=== PATIENT | female | born 1945 | race Caucasian/White ===

== ENCOUNTER 2018-01-08 05:34 | Emergency (ER) | payer MEDICARE, BC ==
[2018-01-08] MEDS ORDERED: ASPIRIN 81 MG TABLET, CHEWABLE PO ONE (05:46)
[2018-01-08] MEDS ORDERED: DILTIAZEM HCL INJ 25 MG/5 ML VIAL IV ONE (05:56)
[2018-01-08] MEDS ORDERED: DILTIAZEM HCL/D5W 125 MG/125 ML RTUINJ IV PRN (05:56)
--- NOTE | 2018-01-08 05:58 | ER Document Report ---
Doctor's Note Notes: 01/08/18 05:57 I performed a quick triage evaluation of the patient. Patient is a pleasant 72- year-old female who presents with complaints of feeling her heart is racing. She said her symptoms started after 3 AM. She denies any chest pain. She has some shortness of breath. She has had approximately 3 pound weight increase due to fluid in her legs. She is on torsemide. She does not take a statin. No recent changes in her medications. She currently is chest pain-free and looks well. Lung canas are clear on auscultation. Heart is rapid and irregular rate. EKG shows atrial fibrillation. I have ordered Cardizem to be given to the patient. Will place on a monitor. I have ordered laboratory evaluation chest x-ray. Dictation of this chart was performed using voice recognition software; therefore, there may be some unintended grammatical errors.
--- NOTE | 2018-01-08 06:13 | ER Document Report ---
ED Cardiac - General Chief Complaint: Chest Pain Stated Complaint: CHEST PAIN Time Seen by Provider: 01/08/18 05:55 Notes: The patient is a 72-year-old female, past medical history A. bismark (on Coumadin), tachybrady syndrome with pacemaker, presents with 3 hours of feeling like her heart is racing. She had an ablation in [place] last week and was recently started on Dofetilide. She denies chest pain, shortness of breath, nausea, vomiting, increased swelling, fevers, headache, back pain, syncope or hemoptysis. TRAVEL OUTSIDE OF THE [place] IN LAST 30 DAYS: No - Related Data Allergies/Adverse Reactions: morphine [Morphine] Allergy (Verified 03/30/15 01:17) Past Medical History - General Information source: Patient - Social History Smoking Status: Never Smoker Family History: Reviewed & Not Pertinent - Past Medical History Cardiac Medical History: Reports: Hx Atrial Fibrillation - HX OF NOT ON COUMADIN , Hx Hypercholesterolemia, Hx Hypertension Denies: Hx Congestive Heart Failure, Hx Coronary Artery Disease, Hx Heart Attack, Hx Peripheral Vascular Disease, Hx Heart Murmur Pulmonary Medical History: Denies: Hx Tuberculosis GI Medical History: Reports: Hx Gastroesophageal Reflux Disease Musculoskeltal Medical History: Reports Hx Arthritis, Denies Hx Fibromyalgia, Denies Hx Muscular Dystrophy Traumatic Medical History: Denies: Hx Fractures Past Surgical History: Reports: Hx Cholecystectomy, Hx Hysterectomy - PARTIAL, Hx Tonsillectomy. Denies: Hx Pacemaker - Immunizations Hx Diphtheria, Pertussis, Tetanus Vaccination: Yes Hx Pneumococcal Vaccination: 07/19/11 Review of Systems - Review of Systems Notes: REVIEW OF SYSTEMS: CONSTITUTIONAL: -fevers, -chills EENT: -eye pain, -difficulty swallowing, -nasal congestion CARDIOVASCULAR: -chest pain, -syncope, +palpitations RESPIRATORY: -cough, -SOB GASTROINTESTINAL: -abdominal pain, -nausea, -vomiting, -diarrhea GENITOURINARY: -dysuria, -hematuria MUSCULOSKELETAL: -back pain, -neck pain SKIN: -rash or skin lesions. HEMATOLOGIC: -easy bruising or bleeding. LYMPHATIC: -swollen, enlarged glands. NEUROLOGICAL: -altered mental status or loss of consciousness, -headache, - neurologic symptoms PSYCHIATRIC: -anxiety, -depression. ALL OTHER SYSTEMS REVIEWED AND NEGATIVE. Physical Exam - Vital signs Vitals: Pulse Ox 100 01/08/18 05:46 - Notes Notes: PHYSICAL EXAMINATION: GENERAL: Well-appearing, well-nourished and in no acute distress. HEAD: Atraumatic, normocephalic. EYES: Pupils equal round and reactive to light, extraocular movements intact, sclera anicteric, conjunctiva are normal. ENT: nares patent, oropharynx clear without exudates. Moist mucous membranes. NECK: Normal range of motion, supple without lymphadenopathy LUNGS: No respiratory distress. Small amount of rales. HEART: Irregularly irregular rhythm ABDOMEN: Soft, nontender, normoactive bowel sounds. No guarding, no rebound. No masses appreciated. EXTREMITIES: 1+ pitting edema around ankles. NEUROLOGICAL: Cranial nerves grossly intact. Normal speech, normal gait. Normal sensory and motor exams. PSYCH: Normal mood, normal affect. SKIN: Warm, Dry, normal turgor, no rashes or lesions noted. No redness or tenderness noted around left upper chest wall pacemaker. Course - Re-evaluation Re-evalutation: Patient appears very well and has no complaints other than feeling her heart racing. She is found to be in A. fib with RVR and a diltiazem bolus was given to the patient patient with improvement of her heart rate to the 70s. She remained stable during this entire time. Diltiazem drip was started at 10 mg/h and quickly titrated down to 0 after she took her home rate control medication. She was observed in the ER and remained in rate controlled A. fib. She had some mild pulmonary vascular congestion on her chest x-ray and she is provided a dose of IV Lasix. She is in no respiratory distress and her oxygen saturation is normal. Blood work is all unremarkable, including 2 sets of negative troponins. She is requesting discharge. She feels much better and has absolutely no complaints at time of discharge. Told her to increase her Coumadin tonight from 6 mg to 8 mg due to the slightly low INR. Patient told to follow-up with her primer charger for further evaluation and treatment. Given very strict return precautions and she understands. - Vital Signs Vital signs: Temp Pulse Resp BP Pulse Ox 70 18 121/68 97 01/08/18 07:00 01/08/18 09:30 01/08/18 09:30 01/08/18 09:30 - Laboratory Result Diagrams: 01/08/18 06:00 01/08/18 06:00 Laboratory results interpreted by me: 01/08/18 01/08/18 01/08/18 06:00 06:00 06:00 RDW 15.1 H PT 23.4 H APTT 44.2 H Chloride 109 H - Diagnostic Test Radiology reviewed: Image reviewed, Reports reviewed Radiology results interpreted by me: CXR: Cardiomegaly with vascular congestion - EKG Interpretation by Me EKG shows normal: ST-T Waves Rate: Tachycardia Rhythm: A.Fib Critical Care Note - Critical Care Note Total time excluding time spent on procedures (mins): 35 Discharge - Discharge Clinical Impression: Atrial fibrillation with rapid ventricular response Pulmonary edema Qualifiers: Chronicity: acute Qualified Code(s): J81.0 - Acute pulmonary edema Condition: Stable Disposition: HOME, SELF-CARE Additional Instructions: Follow-up with your primer charger this week. Take 8 mg Coumadin tonight. Return to the ER if you notice any worsening palpitations, chest pain or shortness of breath. Atrial Fibrillation Atrial fibrillation is an abnormal heart rhythm, caused by irregular electrical circuits in the upper heart chamber. It can be caused by heart valve disease, hardening of the arteries, or metabolic problems such as thyroid disease, or may occur without a clear cause. Atrial fibrillation may occur only occasionally, or may be chronic. Atrial fibrillation often results in a very fast heart rate, with palpitations, lightheadedness, and shortness of breath. Treatment is to slow the abnormally fast rate, and to convert the rhythm back to normal, if possible. Many patients stay in atrial fibrillation for years without symptoms or complications. Your doctor will decide whether you can be converted back to a normal heart rhythm. Contact the doctor or emergency medical system at once if you develop chest pain, shortness of breath, or severe lightheadedness, or if you develop any disturbance of consciousness, problems with speech, or localized weakness. Referrals: AWA ADAME MD [ACTIVE STAFF] - Follow up as needed
[2018-01-08 06:16] LABS: ABSOLUTE BASOPHILS # (AUTO) 0.1 10^3/uL (0.0-0.2); ABSOLUTE EOSINOPHILS # (AUTO) 0.2 10^3/uL (0.0-0.6); ABSOLUTE LYMPHOCYTES (AUTO) 2.2 10^3/uL (0.5-4.7); ABSOLUTE MONOCYTES (AUTO) 0.7 10^3/uL (0.1-1.4); ABSOLUTE NEUT (AUTO) 5.6 10^3/uL (1.7-8.2); EOSINOPHILS % (AUTO) 1.8 % (0-6); HEMOGLOBIN 13.5 g/dL (12.0-15.5); LYMPHOCYTES % (AUTO) 25.4 % (13-45); MEAN CORPUSCULAR HEMOGLOBIN 28.1 pg (27.0-33.4); MEAN CORPUSCULAR VOLUME 85 fl (80-97); MONOCYTES % (AUTO) 7.8 % (3-13); PLATELET COUNT 300 10^3/uL (150-450); RED BLOOD COUNT 4.82 10^6/uL (3.72-5.28); RED CELL DISTRIBUTION WIDTH 15.1 % (11.5-14.0); TOTAL CELLS COUNTED % (AUTO) 100 %; WHITE BLOOD COUNT 8.8 10^3/uL (4.0-10.5)
[2018-01-08 06:27] LABS: ALANINE AMINOTRANSFERASE 36 U/L (9-52); ALBUMIN 3.9 g/dL (3.5-5.0); ALKALINE PHOSPHATASE 109 U/L (38-126); ANION GAP 9 (5-19); ASPARTATE AMINO TRANSFERASE 22 U/L (14-36); BILIRUBIN,DIRECT 0.3 mg/dL (0.0-0.4); BILIRUBIN,TOTAL 0.3 mg/dL (0.2-1.3); BLOOD UREA NITROGEN 20 mg/dL (7-20); CALCIUM 9.2 mg/dL (8.4-10.2); CARBON DIOXIDE 27 mmol/L (22-30); CHLORIDE 109 mmol/L (98-107); CREATINE KINASE 47 U/L (30-135); GLUCOSE 108 mg/dL (75-110); POTASSIUM 3.7 mmol/L (3.6-5.0); TOTAL PROTEIN 7.4 g/dL (6.3-8.2)
--- NOTE | 2018-01-08 06:32 | RADIOLOGY REPORT (SQ) ---
EXAM DESCRIPTION: CHEST SINGLE VIEW CLINICAL HISTORY: er19 chest pain COMPARISON: 03/30/2015 FINDINGS: Single frontal view of the chest. Left-sided pacemaker. Cardiomegaly. Low lung volumes. Possible small left pleural effusion. Pulmonary vascular congestion. No definite interstitial edema. Likely subsegmental atelectasis of the lung bases. No displaced rib fractures identified. Upper abdominal soft tissues are unremarkable. IMPRESSION: 1. Cardiomegaly with pulmonary vascular congestion. 2. Likely subsegmental atelectasis in the lung bases related to low lung volumes. 3. Possible small left pleural effusion
[2018-01-08 06:39] LABS: CREATINE KINASE MB 0.33 ng/mL (<4.55); NT PRO BNP 134 pg/mL (5-900)
[2018-01-08 06:41] LABS: TROPONIN I < 0.012 ng/mL
[2018-01-08] MEDS ORDERED: FUROSEMIDE INJ/PF 40 MG/4 ML SDV IV ONE (06:45)
[2018-01-08 07:24] LABS: INTERNATIONAL RATION (INR) 1.95; PROTHROMBIN TIME 23.4 SEC (11.4-15.4)
[2018-01-08 07:25] LABS: PARTIAL THROMBOPLASTIN TIME 44.2 SEC (23.5-35.8)
[2018-01-08 09:49] VITALS: BP 121/68
--- NOTE | 2018-01-08 22:15 | EKG REPORT ---
SEVERITY:- ABNORMAL ECG - ATRIAL FIBRILLATION VENTRICULAR PREMATURE COMPLEX LOW VOLTAGE IN FRONTAL LEADS BORDERLINE PROLONGED QT INTERVAL : Confirmed by: Jennifer Solorio 08-Jan-2018 22:14:23
== END 2018-01-08 10:10 | disposition home or self-care (01) ==
LOC: ER 05:34
DX: J81.0 Acute pulmonary edema (principal); I48.91 Unspecified atrial fibrillation; R07.9 Chest pain, unspecified; I10 Essential (primary) hypertension; Z79.02 Long term (current) use of antithrombotics/antiplatelets; Z95.0 Presence of cardiac pacemaker; Z90.49 Acquired absence of other specified parts of digestive tract; Z90.710 Acquired absence of both cervix and uterus
CPT/HCPCS: 93005; 99291; 96374; 36415; 82553; 82550; 83735; 85025; 85610; 85730; 80053; 84484; 83880; 71045; 93010; A9270; J1940; J3490 ×2

== ENCOUNTER 2020-09-09 15:23 | Emergency (ER) | payer MEDICARE, BC ==
--- NOTE | 2020-09-09 16:21 | ER Document Report ---
ED General - General Stated Complaint: ABDOMINAL PAIN Time Seen by Provider: 09/09/20 15:41 Notes: HPI: 74-year-old female who presents with a friend secondary to increased abdominal pain and distention. No fevers. Vomiting x1 today. Patient is scheduled tomorrow for surgery with Dr. Cary Thornton for an exploratory laparotomy with possible biopsy. Patient had a recent CT scan around 1 week ago showing a 22 cm mass around the right ovary. Supposedly the patient's abdomen has extended greatly in the last 3 to 4 days. No real aggravating relieving factors. Given the distention in the patient's generalized weakness, they sent the patient here instead of transferring directly to [facility]. ROS: See HPI All other review of systems reviewed and otherwise negative Reviewed vital signs and nursing note as charted by RN. PHYSICAL EXAM: CONSTITUTIONAL: Alert and oriented and responds appropriately to questions HEAD: Normocephalic; atraumatic EYES: Sclerae non-icteric ENT: Normal nose; no rhinorrhea; moist mucous membranes; pharynx without lesions noted NECK: Supple without meningismus; non-tender; no cervical lymphadenopathy, no masses CARD: Regular rate and rhythm; no murmurs; symmetric distal pulses RESP: Normal chest excursion without splinting or tachypnea; breath sounds clear and equal bilaterally; no wheezes, no rhonchi, no rales ABD/GI: Very distended. Bowel sounds present; no focal tenderness; no palpable organomegaly or masses BACK: The back appears normal and is non-tender to palpation EXT: Normal ROM in all joints; non-tender to palpation; no edema SKIN: No acute lesions noted NEURO: CN 2-12 intact; 5/5 bilateral upper and lower extremity strength with sensation intact to light touch PSYCH: The patient's mood and manner are appropriate. Grooming and personal hygiene are appropriate. TRAVEL OUTSIDE OF THE [place] IN LAST 30 DAYS: No - Related Data Allergies/Adverse Reactions: morphine [Morphine] Allergy (Verified 03/30/15 01:17) Past Medical History - Social History Smoking Status: Unknown if Ever Smoked Family History: Reviewed & Not Pertinent - Past Medical History Cardiac Medical History: Reports: Hx Atrial Fibrillation - HX OF NOT ON COUMADIN, Hx Hypercholesterolemia, Hx Hypertension Denies: Hx Congestive Heart Failure, Hx Coronary Artery Disease, Hx Heart Attack, Hx Peripheral Vascular Disease, Hx Heart Murmur Pulmonary Medical History: Denies: Hx Tuberculosis Renal/ Medical History: Denies: Hx Peritoneal Dialysis GI Medical History: Reports: Hx Gastroesophageal Reflux Disease Musculoskeletal Medical History: Reports Hx Arthritis, Denies Hx Fibromyalgia, Denies Hx Muscular Dystrophy Traumatic Medical History: Denies: Hx Fractures Past Surgical History: Reports: Hx Cholecystectomy, Hx Hysterectomy - PARTIAL, Hx Tonsillectomy. Denies: Hx Pacemaker - Immunizations Hx Diphtheria, Pertussis, Tetanus Vaccination: Yes Hx Pneumococcal Vaccination: 07/19/11 Physical Exam - Vital signs Vitals: Pulse BP Pulse Ox 75 142/74 H 95 09/09/20 15:58 09/09/20 15:58 09/09/20 15:58 Course - Re-evaluation Re-evalutation: Given the above history and physical, with the gross distention of the abdomen, we will obtain basic labs, repeat imaging, and consult the [facility] transfer center. Concern about the growth of this tumor/mass of the right ovarian region. 09/09/20 17:05 Given the above history and physical I did call directly to [facility] hospital and spoke directly to the RN LABOR DELIVERY doctor Artie. He states he would forego repeat CT imaging at this time given that they will provide surgery for the patient tomorrow. We will order general labs. They have accepted the patient. Vital signs are stable. - Vital Signs Vital signs: Temp Pulse Resp BP Pulse Ox 98.9 F 75 142/74 H 95 09/09/20 16:44 09/09/20 15:58 09/09/20 15:58 09/09/20 15:58 Discharge - Discharge Clinical Impression: Abdominal mass Qualifiers: Abdominal location: right lower quadrant Qualified Code(s): R19.03 - Right lower quadrant abdominal swelling, mass and lump Fatigue Qualifiers: Fatigue type: unspecified Qualified Code(s): R53.83 - Other fatigue Condition: Fair Disposition: [place]
[2020-09-09 17:32] LABS: APPEARANCE,URINE SLIGHTLY-CLOUDY; BILIRUBIN,URINE NEGATIVE (NEGATIVE); COLOR,URINE AMBER; GLUCOSE, URINE NEGATIVE (NEGATIVE); KETONES,URINE NEGATIVE (NEGATIVE); LEUKOCYTE ESTERASE,URINE NEGATIVE (NEGATIVE); NITRITE,URINE NEGATIVE (NEGATIVE); PROTEIN,URINE NEGATIVE (NEGATIVE); URINE SPECIFIC GRAVITY 1.017
[2020-09-09 18:21] LABS: HEMATOCRIT 41.8 % (36.0-47.0); HEMOGLOBIN 14.1 g/dL (12.0-15.5); MEAN CORPUSCULAR HEMOGLOBIN 28.2 pg (27.0-33.4); MEAN CORPUSCULAR HGB CONC 33.6 g/dL (32.0-36.0); MEAN CORPUSCULAR VOLUME 84 fl (80-97); PLATELET COUNT 665 10^3/uL (150-450); RED BLOOD COUNT 4.99 10^6/uL (3.72-5.28); RED CELL DISTRIBUTION WIDTH 14.9 % (11.5-14.0); WHITE BLOOD COUNT 22.1 10^3/uL (4.0-10.5)
[2020-09-09 18:33] LABS: ALBUMIN 2.9 g/dL (3.5-5.0); ALKALINE PHOSPHATASE 124 U/L (38-126); ASPARTATE AMINO TRANSFERASE 35 U/L (14-36); BILIRUBIN,DIRECT 0.8 mg/dL (0.0-0.4); BILIRUBIN,TOTAL 1.2 mg/dL (0.2-1.3); BLOOD UREA NITROGEN 90 mg/dL (7-20); CALCIUM 9.7 mg/dL (8.4-10.2); GLUCOSE 131 mg/dL (75-110); POTASSIUM 4.6 mmol/L (3.6-5.0); TOTAL PROTEIN 6.1 g/dL (6.3-8.2)
[2020-09-09 18:39] LABS: CARBON DIOXIDE 16 mmol/L (22-30); CHLORIDE 90 mmol/L (98-107)
[2020-09-09 18:40] LABS: ANION GAP 20 (5-19)
[2020-09-09 18:42] LABS: ABSOLUTE LYMPHOCYTES# (MANUAL) 1.1 10^3/uL (0.5-4.7); ABSOLUTE MONOCYTES # (MANUAL) 1.1 10^3/uL (0.1-1.4); BASOPHILS % (MANUAL) 0 % (0-2); EOSINOPHILS % (MANUAL) 0 % (0-6); LYMPHOCYTES % (MANUAL) 5 % (13-45); MONOCYTES % (MANUAL) 5 % (3-13); SEGMENTED NEUTROPHILS % (MAN) 90 % (42-78); TOTAL CELLS COUNTED 100
[2020-09-09 18:43] LABS: ANISOCYTOSIS SLIGHT; BURR CELLS SLIGHT; PLATELET COMMENT INCREASED
[2020-09-09] MEDS ORDERED: NORMAL SALINE 1000 ML 500 ML IV ONE (19:17)
[2020-09-09 20:12] VITALS: BP 141/80
== END 2020-09-09 20:11 | disposition short-term general hospital (02) ==
LOC: ER 15:23
DX: N17.9 Acute kidney failure, unspecified (principal); N83.9 Noninflammatory disorder of ovary, fallopian tube and broad ligament, unspecified; R53.83 Other fatigue; R53.1 Weakness; R14.0 Abdominal distension (gaseous); I10 Essential (primary) hypertension; Z90.711 Acquired absence of uterus with remaining cervical stump; Z90.49 Acquired absence of other specified parts of digestive tract
CPT/HCPCS: 99285; 96360; 36415; 87086; 83690; 85025; 80053; 81001; J7030